=== PATIENT | female | born 1990 | race Caucasian/White ===

== ENCOUNTER 2017-05-22 08:46 | Emergency (ER) | payer MEDICAID ==
[~2017-05-22] VITALS: Ht 157.5 cm; Wt 66.3 kg
[~2017-05-22 08:46] MED LIST: BUSP10TA PO; GABA300C5 PO; SERO200T PO; STRA80CA PO; ZOLO25TA PO
[2017-05-22 08:54] VITALS: BP 123/58; PULSE 94; RESP 16; TEMP 98.4; O2SAT 98
--- NOTE | 2017-05-22 09:56 | PD ---
HPI Chief Complaint: ENT Complaint Time Seen by Provider: 09:08 Travel History International Travel<30 days: No Contact w/Intl Traveler<30days: No Traveled to known affect area: No History of Present Illness HPI This is a 26-year-old female here with sore throat and cough 3 days. Patient believes that she has strep throat. She reports the symptoms are similar to her previous episodes of strep. No fever or chills. Symptom severity is mild. No aggravating or alleviating factors. PFSH Past Medical History ADD: Yes ADHD: Yes Asthma: Yes (as a child) Bipolar Disorder: Yes Anxiety: Yes Depression: Yes Cancer: No Cardiovascular Problems: No Diabetes: No (HYPOGLYCEMIA) Diminished Hearing: No Gastrointestinal Disorders: No Genitourinary: No Hepatitis: No Hiatal Hernia: No Hypertension: No Immune Disorder: No Musculoskeletal: Yes (LEFT KNEE PAIN; HX: FX COCCYX & FX LEFT ANKLE & LEFT WRIST ) Neurologic: No Psychiatric: Yes (ANXIETY, DEPRESSION & BIPOLAR, OCD) Reproductive: Yes (Ovarian cysts) Respiratory: Yes (ASTHMA, LAST ASTHMA ATTACK WAS WHEN PT WAS 12 YOA) Immunizations Current: Yes Migraines: No Seizures: No Thyroid Disease: Yes (? HYPERTHYROID CURRENTLY UNDER MEDICAL WORKUP ) Tetanus Vaccination: > 5 Years Influenza Vaccination: No ?: Not : 2 Para: 2 Miscarriage: 1 : 0 Ovarian Cysts: Yes Past Surgical History Abdominal Surgery: Yes (APPY 2007 ) AICD: No Appendectomy: Yes Body Medical Devices: IUD Cardiac Surgery: No Cholecystectomy: No Ear Surgery: No Eye Surgery: No Genitourinary Surgery: No Gynecologic Surgery: No Joint Replacement: No Neurologic Surgery: No Oral Surgery: Yes (4 WISDOM TEETH REMOVED) Pacemaker: No Thoracic Surgery: No Other Surgery: Yes (dental surgery 2007) Social History Alcohol Use: Yes (OCCASIONALLY) Tobacco Use: No (quit Apr 27, 2017) Substance Use: No Allergies-Medications (Allergen,Severity, Reaction): Coded Allergies: No Known Allergies (Verified Adverse Reaction, Unknown, 05/22/17) Reported Meds & Prescriptions Reported Meds & Active Scripts Active Tessalon Perles (Benzonatate) 100 Mg Cap 200 Mg PO TID PRN Reported Gabapentin 300 Mg Cap 300 Mg PO TID Zoloft (Sertraline HCl) 25 Mg Tab 20 Mg PO DAILY Seroquel (Quetiapine Fumarate) 200 Mg Tab 200 Mg PO DAILY Buspirone (Buspirone HCl) 10 Mg Tab 75 Mg PO DAILY Strattera (Atomoxetine) 80 Mg Cap 80 Mg PO DAILY Review of Systems Except as stated in HPI: all other systems reviewed are Neg General / Constitutional: No: Fever Eyes: No: Visual changes HENT: Positive: Sore Throat, No: Headaches Cardiovascular: No: Chest Pain or Discomfort Respiratory: Positive: Cough Gastrointestinal: No: Abdominal Pain Genitourinary: No: Dysuria Physical Exam Narrative GENERAL: Alert and nontoxic appearing 26-year-old female SKIN: Warm and dry. No rash HEAD: Normocephalic. EYES: No injection or drainage. EARS/NOSE/THROAT: No TM erythema. Clear nasal discharge. Mild pharyngeal erythema without tonsilar hypertrophy or exudate. NECK: Supple, trachea midline. No meningismus CARDIOVASCULAR: Regular rate and rhythm without murmurs, gallops, or rubs. RESPIRATORY: Breath sounds equal bilaterally. No accessory muscle use. No wheezing, rales, rhonchi. GASTROINTESTINAL: Abdomen soft, non-tender, nondistended. MUSCULOSKELETAL: No cyanosis, or edema. Data Data Last Documented VS Vital Signs Date Time Temp Pulse Resp B/P (MAP) Pulse Ox O2 Delivery O2 Flow Rate FiO2 05/22/17 08:54 98.4 94 16 123/58 (79) 98 Orders Orders Group A Rapid Strep Screen (05/22/17 09:30) Strep Culture (Group A) (05/22/17 09:33) MDM Medical Decision Making Medical Screen Exam Complete: Yes Emergency Medical Condition: Yes Differential Diagnosis URI, viral bronchitis, strep pharyngitis Narrative Course 26-year-old female here with cough and sore throat 3 days. She is concerned that this is strep pharyngitis. She is well-appearing. Her vital signs are stable. She has mild pharyngeal erythema without tonsillar hypertrophy or exudate. I suspect this is a viral URI. Strep Screen negative. Diagnosis Primary Impression: Viral URI with cough Referrals: Primary Care Physician Departure Forms: Tests/Procedures, Work Release Enter return to work date: May 25, 2017 Additional Instructions: Take [id number] ibuprofen 600-800 mg every 6-8 hours as needed for pain Stay well hydrated by drinking water and Gatorade. Cough medication as needed. Return if he developed new or worsening symptoms. Scripts Benzonatate (Tessalon Perles) 100 Mg Cap 200 MG PO TID Y for COUGH, #14 CAP 0 Refills Prov: Valery Connolly 05/22/17 Disposition: 01 DISCHARGE HOME Condition: Stable Valery Connolly May 22, 2017 09:56
[2017-05-22] MEDS ORDERED: BENZ100 PO (09:57)
== END 2017-05-22 10:04 | disposition home or self-care (01) ==
LOC: PHEFT 08:46
DX: J06.9 Acute upper respiratory infection, unspecified (principal); R05 Cough; E05.90 Thyrotoxicosis, unspecified without thyrotoxic crisis or storm; F90.9 Attention-deficit hyperactivity disorder, unspecified type; F31.9 Bipolar disorder, unspecified; F42.9 Obsessive-compulsive disorder, unspecified; Z87.891 Personal history of nicotine dependence; Z79.899 Other long term (current) drug therapy
CPT/HCPCS: 87081; 87880; 99283

== ENCOUNTER 2017-08-24 17:43 | Emergency (ER) | payer MEDICAID ==
[~2017-08-24] VITALS: Ht 160 cm; Wt 67.0 kg
[~2017-08-24 17:43] MED LIST changes: +BENZ100 PO
[2017-08-24 17:47] VITALS: BP 146/70; PULSE 95; RESP 16; TEMP 98.6; O2SAT 98
[2017-08-24] MEDS ORDERED: SODIUM CHLOR 0.9% 1000 ML INJ 1,000 ML IV SCH (18:15)
[2017-08-24] MEDS ORDERED: MORPHINE SULFATE 2 MG/ML SYRINGE IV PUSH ONE (18:15)
[2017-08-24] MEDS ORDERED: ONDANSETRON HCL 4 MG/2 ML VIAL IV PUSH ONE (18:15)
[2017-08-24 18:34] LABS: AUTOMATED NEUTROPHIL # 5.7 TH/MM3 (1.8-7.7); BASOPHIL % 0.6 % (0.0-2.0); EOSINOPHIL % 0.5 % (0.0-4.0); HEMOGLOBIN 12.7 GM/DL (11.6-15.3); LYMPH % 16.4 % (9.0-44.0); LYMPHOCYTE # 1.2 TH/MM3 (1.0-4.8); MEAN CELL VOLUME 80.1 FL (80.0-100.0); MEAN CORPUSCULAR HEMOGLOBIN 26.8 PG (27.0-34.0); MEAN CORPUSCULAR HGB CONC 33.4 % (32.0-36.0); MEAN PLATELET VOLUME 7.9 FL (7.0-11.0); MONO % 6.8 % (0.0-8.0); MONOCYTE # 0.5 TH/MM3 (0-0.9); NEUT % 75.7 % (16.0-70.0); PLATELET COUNT 258 TH/MM3 (150-450); RED BLOOD COUNT 4.74 MIL/MM3 (4.00-5.30); RED CELL DISTRIBUTION WIDTH 13.1 % (11.6-17.2); WHITE BLOOD COUNT 7.4 TH/MM3 (4.0-11.0)
[2017-08-24 18:35] LABS: BILIRUBIN, URINE NEG (NEG); BLOOD, URINE NEG (NEG); GLUCOSE,URINE NEG (NEG); KETONE, URINE NEG (NEG); NITRITE,URINE NEG (NEG); PH, URINE 8.5 (5.0-8.5); URINE COLOR YELLOW (YELLW/STRAW); URINE LEUKOCYTE ESTERASE NEG (NEG)
--- NOTE | 2017-08-24 18:41 | PD ---
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 Patient states that the pain started this afternoon. Patient states the pain is sharp severe pain localized to left lower quadrant of the abdomen. Patient denies any pain radiation. Patient denies any nausea vomiting diarrhea. Patient denies any dysuria frequency. Patient denies any vaginal bleeding. Patient states that she has vaginal discharge for the past 2 days. Patient denies any headache. Patient denies any chest pain or shortness of breath. Patient has history of ovarian cyst in the past. Patient denies any fever chills. On a scale of 1-10 the pain is a 10. PFSH Past Medical History ADD: Yes ADHD: Yes Asthma: Yes (as a child) Bipolar Disorder: Yes Anxiety: Yes Depression: Yes Cancer: No Cardiovascular Problems: No Diabetes: No (HYPOGLYCEMIA) Diminished Hearing: No Gastrointestinal Disorders: No Genitourinary: No Hepatitis: No Hiatal Hernia: No Hypertension: No Immune Disorder: No Musculoskeletal: Yes (LEFT KNEE PAIN; HX: FX COCCYX & FX LEFT ANKLE & LEFT WRIST ) Neurologic: No Psychiatric: Yes (ANXIETY, DEPRESSION & BIPOLAR, OCD) Reproductive: Yes (Ovarian cysts) Respiratory: Yes (ASTHMA, LAST ASTHMA ATTACK WAS WHEN PT WAS 12 YOA) Immunizations Current: Yes Migraines: No Seizures: No Thyroid Disease: Yes (? HYPERTHYROID CURRENTLY UNDER MEDICAL WORKUP ) ?: Not LMP: 2 WEEKS : 2 Para: 2 Miscarriage: 1 : 0 Ovarian Cysts: Yes Past Surgical History Abdominal Surgery: Yes (APPY 2007 ) AICD: No Appendectomy: Yes Body Medical Devices: IUD Cardiac Surgery: No Cholecystectomy: No Ear Surgery: No Eye Surgery: No Genitourinary Surgery: No Gynecologic Surgery: No Joint Replacement: No Neurologic Surgery: No Oral Surgery: Yes (4 WISDOM TEETH REMOVED) Pacemaker: No Thoracic Surgery: No Other Surgery: Yes (dental surgery 2007) Social History Alcohol Use: Yes (OCCASIONALLY) Tobacco Use: No (quit Apr 27, 2017) Substance Use: No Allergies-Medications (Allergen,Severity, Reaction): Coded Allergies: No Known Allergies (Verified Adverse Reaction, Unknown, 08/24/17) Reported Meds & Prescriptions Reported Meds & Active Scripts Active Reported Gabapentin 300 Mg Cap 300 Mg PO TID Zoloft (Sertraline HCl) 25 Mg Tab 20 Mg PO DAILY Seroquel (Quetiapine Fumarate) 200 Mg Tab 200 Mg PO DAILY Buspirone (Buspirone HCl) 10 Mg Tab 75 Mg PO DAILY Strattera (Atomoxetine) 80 Mg Cap 80 Mg PO DAILY Review of Systems General / Constitutional: No: Fever Eyes: No: Visual changes HENT: No: Headaches Cardiovascular: No: Chest Pain or Discomfort Respiratory: No: Shortness of Breath Gastrointestinal: Positive: Abdominal Pain Genitourinary: Positive: Discharge, No: Dysuria Musculoskeletal: No: Pain Skin: No Rash Neurologic: No: Weakness Psychiatric: No: Depression Endocrine: No: Polydipsia Hematologic/Lymphatic: No: Easy Bruising Physical Exam Narrative GENERAL: Well-nourished, well-developed patient. SKIN: Focused skin assessment warm/dry. HEAD: Normocephalic. EYES: No scleral icterus. No injection or drainage. NECK: Supple, trachea midline. No JVD or lymphadenopathy. CARDIOVASCULAR: Regular rate and rhythm without murmurs, gallops, or rubs. RESPIRATORY: Breath sounds equal bilaterally. No accessory muscle use. GASTROINTESTINAL: Abdomen soft, nondistended. Patient has moderate tenderness on palpation left lower quadrant of the abdomen. No rebound tenderness. No mass. MUSCULOSKELETAL: No cyanosis, or edema. BACK: Nontender without obvious deformity. No CVA tenderness. 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 Questionable cervical motion tenderness. Uterus nonenlarged with mild tenderness on palpation. Moderate tenderness on palpation left adnexa. No adnexal mass. Data Data Last Documented VS Vital Signs Date Time Temp Pulse Resp B/P (MAP) Pulse Ox O2 Delivery O2 Flow Rate FiO2 08/24/17 19:25 85 16 127/46 (73) 98 Room Air 08/24/17 17:47 98.6 Orders Orders Complete Blood Count With Diff (08/24/17 18:09) Comprehensive Metabolic Panel (08/24/17 18:09) Urinalysis - C+S If Indicated (08/24/17 18:09) Wet Prep Profile (08/24/17 18:09) Gc And Chlamydia Pcr (08/24/17 18:09) Ct Abd/Pel W Iv Contrast(Rout) (08/24/17 18:09) Iv Access Insert/Monitor (08/24/17 18:09) Ecg Monitoring (08/24/17 18:09) Oximetry (08/24/17 18:09) Ed Urine Pregnancytest Poc (08/24/17 18:09) Sodium Chlor 0.9% 1000 Ml Inj (Ns 1000 M (08/24/17 18:15) Ondansetron Inj (Zofran Inj) (08/24/17 18:15) Morphine Inj (Morphine Inj) (08/24/17 18:45) Iohexol 350 Inj (Omnipaque 350 Inj) (08/24/17 19:57) Ceftriaxone Inj (Rocephin Inj) (08/24/17 21:15) Azithromycin Powd Pack (Zithromax Powd P (08/24/17 21:15) Ketorolac Inj (Toradol Inj) (08/24/17 21:15) Ed Discharge Order (08/24/17 21:46) Labs Laboratory Tests Test 08/24/17 18:15 08/24/17 18:20 Urine Color YELLOW Urine Turbidity CLOUDY Urine pH 8.5 Urine Specific [place] 1.020 Urine Protein NEG mg/dL Urine Glucose (UA) NEG mg/dL Urine Ketones NEG mg/dL Urine Occult Blood NEG Urine Nitrite NEG Urine Bilirubin NEG Urine Urobilinogen 0.2 MG/DL Urine Leukocyte Esterase NEG Urine WBC 0-2 /hpf Urine Squamous Epithelial Cells 0-5 /hpf Urine Amorphous Sediment MOD Microscopic Urinalysis Comment CULT NOT INDICATED White Blood Count 7.4 TH/MM3 Red Blood Count 4.74 MIL/MM3 Hemoglobin 12.7 GM/DL Hematocrit 38.0 % Mean Corpuscular Volume 80.1 FL Mean Corpuscular Hemoglobin 26.8 PG Mean Corpuscular Hemoglobin Concent 33.4 % Red Cell Distribution Width 13.1 % Platelet Count 258 TH/MM3 Mean Platelet Volume 7.9 FL Neutrophils (%) (Auto) 75.7 % Lymphocytes (%) (Auto) 16.4 % Monocytes (%) (Auto) 6.8 % Eosinophils (%) (Auto) 0.5 % Basophils (%) (Auto) 0.6 % Neutrophils # (Auto) 5.7 TH/MM3 Lymphocytes # (Auto) 1.2 TH/MM3 Monocytes # (Auto) 0.5 TH/MM3 Eosinophils # (Auto) 0.0 TH/MM3 Basophils # (Auto) 0.0 TH/MM3 CBC Comment DIFF FINAL Differential Comment Clue Cells (Wet Prep) NONE SEEN Vaginal Trichomonas (Wet Prep) NONE SEEN Vaginal Yeast (Wet Prep) NONE SEEN Blood Urea Nitrogen 20 MG/DL Creatinine 0.89 MG/DL Random Glucose 99 MG/DL Total Protein 7.9 GM/DL Albumin 4.1 GM/DL Calcium Level 9.3 MG/DL Alkaline Phosphatase 76 U/L Aspartate Amino Transf (AST/SGOT) 14 U/L Alanine Aminotransferase (ALT/SGPT) 13 U/L Total Bilirubin 0.4 MG/DL Sodium Level 135 MEQ/L Potassium Level 3.7 MEQ/L Chloride Level 103 MEQ/L Carbon Dioxide Level 25.8 MEQ/L Anion Gap 6 MEQ/L Estimat Glomerular Filtration Rate 76 ML/MIN MDM Medical Decision Making Medical Screen Exam Complete: Yes Emergency Medical Condition: Yes Interpretation(s) Last Impressions Abdomen/Pelvis CT 08/24/171808 Signed Impressions: Service Date/Time: Thursday, August 24, 2017 19:28 - CONCLUSION: 1. Bilateral ovarian cysts, measuring up to 2 cm on the left. 2. Intrauterine device present. Previous appendectomy. No acute findings within the abdomen. Jeff Braxton MD 21:01 PM. CBC within normal limits. Sodium 135. BUN 20. UA is negative. Wet prep negative. Differential Diagnosis Differential diagnosis including UTI, pyelonephritis, nephrolithiasis, ovarian cyst, ovarian torsion, ectopic . Narrative Course 27-year-old female with left lower quadrant abdominal pain left pelvic pain. Normal saline solution 1 25 cc an hour. Morphine 2 mg IV. Zofran 4 mg IV. Toradol 30 mg IV. Rocephin 1 g IV. Zithromax 1 g p.o. Diagnosis Primary Impression: Cervicitis Additional Impression: Ovarian cyst Qualified Codes: N83.201 - Unspecified ovarian cyst, right side; N83.202 - Unspecified ovarian cyst, left side Patient Instructions: General Instructions Additional Instructions: Ibuprofen as needed for pain. Follow-up with interventional physiatrist. Return if worse. Med/Other Pt SpecificInfo: Prescription(s) given Scripts Ibuprofen (Ibuprofen) 600 Mg Tab 600 MG PO TID for Pain, #30 TAB 0 Refills Prov: Sj Zepeda MD 08/24/17 Disposition: 01 DISCHARGE HOME Condition: Stable Sj Zepeda MD Aug 24, 2017 18:41
[2017-08-24 18:43] LABS: CHLORIDE 103 MEQ/L (98-107); SODIUM (NA) 135 MEQ/L (136-145)
[2017-08-24 18:44] VITALS: BP 116/63; PULSE 92; RESP 16; O2SAT 96
[2017-08-24 18:45] VITALS: RESP 16; O2SAT 96
[2017-08-24 18:45] LABS: AMORPHOUS SEDIMENT, URINE MOD; SQUAMOUS EPITHELIAL CELL URINE 0-5 /hpf (0-5); WBC, URINE 0-2 /hpf (0-5)
[2017-08-24] MEDS ORDERED: MORPHINE SULFATE 4 MG/ML INJ IV PUSH ONE (18:45)
[2017-08-24 18:46] LABS: CALCIUM 9.3 MG/DL (8.5-10.1)
[2017-08-24 18:47] LABS: ALBUMIN 4.1 GM/DL (3.4-5.0); BICARBONATE 25.8 MEQ/L (21.0-32.0); BLOOD UREA NITROGEN 20 MG/DL (7-18); GLUCOSE,RANDOM 99 MG/DL (74-106)
[2017-08-24 18:50] LABS: ALT (GPT) 13 U/L (10-53); AST (GOT) 14 U/L (15-37); CREATININE 0.89 MG/DL (0.50-1.00); GLOMERULAR FILTRATION RATE 76 ML/MIN (>89)
[2017-08-24 18:52] LABS: TOTAL BILIRUBIN ADULT 0.4 MG/DL (0.2-1.0); TOTAL PROTEIN 7.9 GM/DL (6.4-8.2)
[2017-08-24 18:53] LABS: ALKALINE PHOSPHATASE 76 U/L (45-117)
[2017-08-24 19:25] VITALS: BP 127/46; PULSE 85; RESP 16; O2SAT 98
[2017-08-24] MEDS ORDERED: IOHEXOL 350 MG/ML 10 ML VIAL (for RAD DIAG) IVCONTRAST ONE (19:57)
--- NOTE | 2017-08-24 20:23 | RADRPT ---
EXAM DATE/TIME: 08/24/2017 19:28 [facility] COMPARISON: No previous studies available for comparison. INDICATIONS : Left lower quadrant pain. IV CONTRAST: 100 cc Omnipaque 350 (iohexol) IV ORAL CONTRAST: No oral contrast ingested. RADIATION DOSE: 11.20 CTDIvol (mGy) MEDICAL HISTORY : None SURGICAL HISTORY : Appendectomy. ENCOUNTER: Initial ACUITY: 1 day PAIN SCALE: 9/10 LOCATION: Left lower quadrant TECHNIQUE: Volumetric scanning of the abdomen and pelvis was performed. Using automated exposure control and ad justment of the mA and/or kV according to patient size, radiation dose was kept as low as reasonably achievable to obtain optimal diagnostic quality images. DICOM format image data is available electro nically for review and comparison. FINDINGS: Lung bases are clear. No acute findings in the liver, spleen, adrenals, kidneys or pancreas. No calci fied gallstones or biliary ductal dilatation. There is no free fluid. No bowel obstruction. No adenopathy. Intrauterine device is present. Follicul ar cysts present in the ovaries. CONCLUSION: 1. Bilateral ovarian cysts, measuring up to 2 cm on the left. 2. Intrauterine device present. Previous appendectomy. No acute findings within the abdomen. Jeff Braxton MD on August 24, 2017 at 20:04 Board Certified Radiologist. This report was verified electronically.
[2017-08-24 21:15] VITALS: BP 134/72; PULSE 88; RESP 16; O2SAT 99
[2017-08-24] MEDS ORDERED: cefTRIAXone INJ 1,000 MG in SODIUM CHLORIDE 0.9% INJ 100 ML IV ONE (21:15)
[2017-08-24] MEDS ORDERED: KETOROLAC TROMETHAMINE 30 MG/ML (IVP) VIAL IV PUSH ONE (21:15)
[2017-08-24] MEDS ORDERED: AZITHROMYCIN PWD FOR SUSP 1 GM PACKET PO ONE (21:15)
[2017-08-24] MEDS ORDERED: IBUP-232 PO (21:47)
[2017-08-24 23:00] VITALS: BP 114/66; PULSE 80; RESP 16; O2SAT 98
== END 2017-08-24 23:10 | disposition home or self-care (01) ==
LOC: PHED 17:43
DX: N72 Inflammatory disease of cervix uteri (principal); N83.201 Unspecified ovarian cyst, right side; N83.202 Unspecified ovarian cyst, left side; F90.9 Attention-deficit hyperactivity disorder, unspecified type; F31.9 Bipolar disorder, unspecified; F41.9 Anxiety disorder, unspecified; F42.9 Obsessive-compulsive disorder, unspecified; J45.909 Unspecified asthma, uncomplicated; Z87.891 Personal history of nicotine dependence
CPT/HCPCS: 74177; 80053; 81001; 84703; 85025; 87210; 87491; 87591; 96361; 96365; 96375; 99284; J0696; J1885; J2270; J2405; J7030; Q9967